=== PATIENT | male | born 1975 | race African-American/Black ===

== ENCOUNTER 2025-02-26 17:01 | Emergency (ER) | payer OTHER ==
[2025-02-26 17:12] VITALS: BP 130/72; PULSE 62; RESP 18; TEMP 98; BMI 27.0
[2025-02-26] MEDS ORDERED: IBUPROFEN 600 MG TABLET (FP) PO ONE (17:31)
[2025-02-26] MEDS: IBUPROFEN 600 MG TABLET (FP) PO ONE (17:37)
== END 2025-02-26 18:09 | disposition home or self-care (01) ==
LOC: JERFT 17:01
DX: M54.2 Cervicalgia (principal); M54.6 Pain in thoracic spine; V87.7XXA Person injured in collision between other specified motor vehicles (traffic), initial encounter; Y92.410 Unspecified street and highway as the place of occurrence of the external cause
CPT/HCPCS: 72050-TC-FY; 99283-25